=== PATIENT | female | born 1990 | race Caucasian/White ===

== ENCOUNTER 2024-10-22 12:58 | Inpatient (IN) | payer OTHER ==
[2024-10-22] MEDS ORDERED: ONDANSETRON 4 MG/2 ML VIAL ONE ×2 (13:51→15:13)
[2024-10-22 15:22] LABS: ABSOLUTE IMMATURE GRANULOCYTES 0.03 x10^3/uL (0.0-0.031); BASOPHILS # 0.04 x10^3/uL (0.01-0.08); EOSINOPHIL % 0.1 % (0.7-5.8); EOSINOPHILS # 0.01 x10^3/uL (0.04-0.36); MCHC 32.9 g/dl (32.2-35.5); MEAN CELL VOLUME 88.1 fl (79.4-94.8); MEAN PLT VOLUME 9.9 fl (9.4-12.3); MONOCYTE # 0.38 x10^3/uL (0.24-0.86); MONOCYTE % 5.6 % (4.7-12.5); RDW 12.8 % (12.1-16.8)
[2024-10-22 15:27] LABS: BG HCT 39.0 % (32.4-45.2); VENOUS BASE EXCESS -0.2 mmol/L (-2-2); VENOUS O2 SATURATION 26.5 % (70-80); VENOUS PCO2 43.8 mmHg (38-52); VENOUS PH 7.377 (7.310-7.410)
[2024-10-22] MEDS: ONDANSETRON 4 MG/2 ML VIAL IVPUSH ONE (15:27)
[2024-10-22] MEDS: SODIUM CHLORIDE 1,000 ML IV STA (15:27)
[2024-10-22 15:44] LABS: GLUCOSE,RANDOM 196.0 mg/dL (74-106)
[2024-10-22 15:45] LABS: TOT PROT 8.3 g/dl (6.4-8.2)
[2024-10-22 15:46] LABS: CO2 19.0 mmol/L (21-32)
[2024-10-22 15:47] LABS: ALK PHOS 46.0 U/L (40-150)
[2024-10-22 15:50] LABS: CREATININE 0.54 mg/dL (0.55-1.3); SGOT/AST 13.0 U/L (5-34); SGPT/ALT 11.0 U/L (0-55)
[2024-10-22 16:10] LABS: HCV DIAGNOSTIC IN-HOUSE W/RFLX NON-REACTIVE (NONREACTIVE)
[2024-10-22] MEDS: LACTATED RINGERS SOLUTION 1000 ML INFUS.BAG IV ONE (17:21)
[2024-10-22 17:29] LABS: HIV INTERPRETATION NEGATIVE (NEGATIVE)
[2024-10-22] MEDS: D5-1/2NS+10 MEQ KCL - 10 MEQ/1,000 ML INFUS.BAG IV SCH ×3 (19:01→21:03)
[2024-10-22 19:50] LABS: URINE APPEARANCE CLEAR; URINE BILIRUBIN NEGATIVE (NEGATIVE); URINE COLOR YELLOW; URINE GLUCOSE (UA) 3+ (NEGATIVE); URINE KETONE 2+ (NEGATIVE); URINE LEUK ESTERASE NEGATIVE (NEGATIVE); URINE NITRITE NEGATIVE (NEGATIVE); URINE PROTEIN NEGATIVE (NEGATIVE); URINE UROBILINOGEN 1.0 mg/dL (0.2-1.0)
[2024-10-22 20:17] LABS: GLUCOSE,RANDOM 97.0 mg/dL (74-106)
[2024-10-22 20:18] LABS: TOT PROT 6.7 g/dl (6.4-8.2)
[2024-10-22 20:20] LABS: ALK PHOS 38.0 U/L (40-150)
[2024-10-22 20:23] LABS: CREATININE 0.49 mg/dL (0.55-1.3); SGOT/AST 12.0 U/L (5-34); SGPT/ALT 6.0 U/L (0-55)
[2024-10-22 20:25] LABS: CO2 17.0 mmol/L (21-32)
[2024-10-22] MEDS: INSULIN (NOVOLOG) ASPART 100 UNITS/ML 10ML VIAL SQ ONE (20:29)
[2024-10-22] MEDS ORDERED: ONDANSETRON 4 MG/2 ML VIAL IVPUSH PRN (20:43)
[2024-10-22] MEDS ORDERED: DEXTROSE 50%-WATER - 25 GM/50 ML VIAL IVPUSH PRN (20:53)
[2024-10-22 21:29] VITALS: BMI 21.2
[2024-10-22] MEDS: LACTATED RINGERS SOLUTION 1,000 ML/1,000 ML INFUS.BAG IV SCH (21:50)
[2024-10-22] MEDS: D5-NS + 40 MEQ KCL - 40 MEQ/1,000 ML INFUS.BAG IV SCH ×2 (21:53→23:32)
[2024-10-22] MEDS: INSULIN REGULAR 100 UNITS in SODIUM CHLORIDE 99 ML IVPB SCH (21:53)
[2024-10-22] MEDS ORDERED: HEPARIN NA (PORCINE) 5,000 UNITS/ML 1ML VIAL SQ SCH (22:00)
[2024-10-22] MEDS ORDERED: INSULIN ASPART SLIDING SCALE (NOVOLOG) 1 VIAL SQ SCH (22:00)
[2024-10-22] MEDS: CHLORHEXIDINE GLUCONATE 4% CLEANSER FOR DECOLONIZATION TP SCH (22:00)
[2024-10-22] MEDS: MUPIROCIN 2% TOPICAL OINTMENT FOR DECOLONIZATION NS SCH (22:00)
[2024-10-22] MEDS ORDERED: INSULIN GLARGINE (LANTUS) 100 UNITS/ML UNITS SQ SCH (22:00)
[2024-10-22] MEDS: MICONAZOLE NITRATE 2% VAGINAL CREAM 45 GM TUBE VG SCH (22:26)
[2024-10-22] MEDS: FAMOTIDINE 20 MG/50 ML IVPB 20 MG/50 ML MG IVPB SCH (22:27)
[2024-10-22] MEDS: INSULIN GLARGINE (LANTUS) 100 UNITS/ML UNITS SQ SCH (22:27)
[2024-10-23 02:20] VITALS: BP 97/71; PULSE 73; RESP 14; TEMP 98
[2024-10-23 02:32] LABS: GLUCOSE,RANDOM 160 mg/dL (74-106); TOT PROT 5.4 g/dl (6.4-8.2)
[2024-10-23 02:33] LABS: CO2 20 mmol/L (21-32)
[2024-10-23 02:35] LABS: ALK PHOS 30 U/L (40-150)
[2024-10-23 02:38] LABS: SGOT/AST 13 U/L (5-34)
[2024-10-23 03:00] LABS: CREATININE 0.51 mg/dL (0.55-1.3); SGPT/ALT < 6 U/L (0-55)
[2024-10-23] MEDS ORDERED: INSULIN ASPART SLIDING SCALE (NOVOLOG) 1 VIAL SQ SCH (07:00)
[2024-10-23] MEDS ORDERED: PRENATAL VITAMINS W/ FOLIC ACID TABLET (FP) PO SCH (10:00)
== END 2024-10-23 03:50 | disposition short-term general hospital (02) | DRG 566 ==
LOC: JER 12:58 → JERBED 20:36 → JICU 21:12
PROVIDERS: ADMIT Internal Medicine Pulmonary Disease; ATTEND Internal Medicine Pulmonary Disease
DX: O24.012 Pre-existing type 1 diabetes mellitus, in pregnancy, second trimester (principal); E10.10 Type 1 diabetes mellitus with ketoacidosis without coma; O26.892 Other specified pregnancy related conditions, second trimester; E10.42 Type 1 diabetes mellitus with diabetic polyneuropathy; Z3A.17 17 weeks gestation of pregnancy; K21.9 Gastro-esophageal reflux disease without esophagitis
CPT/HCPCS: 36415; 76815-TC; 80053; 81003; 82010; 82803; 82962; 85025; 86803; 87077; 87086; 87389; 99285-25